=== PATIENT | female | born 1995 | race Two or more races ===

== ENCOUNTER 2018-02-25 21:17 | Emergency (ER) | payer SELFPAY ==
[~2018-02-25] VITALS: Ht 152.4 cm; Wt 99.8 kg
[2018-02-25 21:21] VITALS: BP 134/79
== END 2018-02-26 01:30 | disposition left against medical advice (07) ==
LOC: ER 21:27
DX: R10.30 Lower abdominal pain, unspecified (principal); Z53.21 Procedure and treatment not carried out due to patient leaving prior to being seen by health care provider

== ENCOUNTER 2022-03-28 15:56 | Emergency (ER) | payer MEDICAID | END 2022-03-28 17:06 | disposition left against medical advice (07) | LOC: ER 16:01 | DX: L02.211 Cutaneous abscess of abdominal wall (principal); Z53.21 Procedure and treatment not carried out due to patient leaving prior to being seen by health care provider ==